=== PATIENT | female | born 1980 | race Hispanic/Latino ===

== ENCOUNTER 2018-02-07 18:49 | Emergency (ER) | payer OTHER ==
[~2018-02-07] VITALS: Ht 157.5 cm; Wt 72.6 kg
[2018-02-07] MEDS ORDERED: SODIUM CHLORIDE 0.9% 1000ML 1,000 ML IV STA (19:12)
[2018-02-07 19:33] LABS: BASOPHILS % 0.3 % (0.0-1.0); EOSINOPHILS # (AUTO) 0.2 (0.0-0.4); EOSINOPHILS % 1.6 % (0.0-6.0); HEMATOCRIT 39.6 % (34.2-44.1); HEMOGLOBIN 13.6 g/dL (12.0-16.0); LYMPHOCYTES # (AUTO) 3.7 (1.0-3.2); LYMPHOCYTES % 29.9 % (18.0-39.1); MEAN CORPUSCULAR HEMOGLOBIN 31.7 pg (28-32); MEAN CORPUSCULAR HGB CONC 34.3 g/dL (31-35); MEAN CORPUSCULAR VOLUME 92.3 fL (81-99); MONOCYTES # (AUTO) 0.9 (0.2-0.8); MONOCYTES % 6.9 % (4.4-11.3); NEUTROPHILS # (AUTO) 7.5 (2.1-6.9); NEUTROPHILS % 60.6 % (38.7-80.0); PLATELET COUNT 239 x10e3/uL (140-360); RED BLOOD COUNT 4.29 x10e6/uL (3.6-5.1); RED CELL DISTRIBUTION WIDTH 12.7 % (11.7-14.4)
[2018-02-07 19:34] LABS: COLOR,URINE YELLOW (YELLOW); KETONES,URINE NEGATIVE (NEGATIVE); LEUKOCYTE ESTERASE ,URINE NEGATIVE (NEGATIVE); NITRITE,URINE NEGATIVE (NEGATIVE); PROTEIN,URINE DIPSTICK NEGATIVE (NEGATIVE); URINE UROBILINOGEN 0.2 mg/dL (0.2 - 1)
[2018-02-07 19:35] LABS: BILIRUBIN,URINE NEGATIVE (NEGATIVE)
[2018-02-07 19:40] LABS: BACTERIA,URINE RARE /HPF; CLARITY,URINE CLEAR (CLEAR); EPITHELIAL CELLS,URINE MODERATE /LPF; RBC,URINE 21-50 /HPF (0-5); WBC,URINE (MAN) 0-5 /HPF (0-5)
[2018-02-07 19:47] LABS: ALANINE AMINOTRANSFERASE 21 IU/L (0-55); ALBUMIN 3.7 g/dL (3.5-5.0); ALKALINE PHOSPHATASE 65 IU/L (40-150); AMYLASE 69 U/L (25-125); ANION GAP 15.2 mmol/L (8-16); BLOOD UREA NITROGEN 10 mg/dL (7-26); BUN/CREATININE RATIO 16 (6-25); CALCIUM 9.3 mg/dL (8.4-10.2); CARBON DIOXIDE 19 mmol/L (22-29); CHLORIDE 105 mmol/L (98-107); CREATININE, SERUM 0.64 mg/dL (0.57-1.11); EST GLOMERULAR FILTRATION RATE > 60 ML/MIN (60-); GLUCOSE 99 mg/dL (74-118); LIPASE 60 U/L (8-78); POTASSIUM 4.2 mmol/L (3.5-5.1); SODIUM 135 mmol/L (136-145)
[2018-02-07 20:10] LABS: HCG,QUANTITATIVE 31187.37 mIU/mL (0-10)
--- NOTE | 2018-02-07 21:46 | Diagnostic Imaging Report ---
EXAM: Obstetric Pelvic Ultrasound INDICATION: Vaginal bleeding, 8 weeks . COMPARISON: None TECHNIQUE: Transabdominal and transvaginal evaluation of the pelvis was performed in the transverse and longitudinal planes. CLINICAL HISTORY: 37 year old A0; last menstrual period: 09/10/2018 Gestational age by LMP 9 weeks and 2 days FINDINGS: Uterus: Orientation: Normal Size: 8.2 x 5.4 x 5.5 cm, enlarged Mass: None Cervix: Normal Gestational Sac: Location: Intrauterine Average sac diameter: 1.41 cm Estimated sonographic GA: 9 weeks and 2 days Appearance: Normal in contour Subchorionic hemorrhage: None Yolk sac: Normal Embryo/Fetus: Not visualized Cardiac activity: Not visualized Right ovary Not visualized Left ovary Size: 1.9 x 2.8 x 2.7 cm Mass/Cyst: None Cul-de-sac: No free fluid IMPRESSION: 1. Intrauterine gestational sac without evidence of pole suspicious for blighted ovum (anembryonic gestational sac). 2. Follow-up with serial beta-hCG is recommended Signed by: Dr. Naldo George M.D. on 02/07/2018 9:41 PM
[2018-02-07 22:43] VITALS: BP 100/76
== END 2018-02-07 22:47 | disposition home or self-care (01) ==
LOC: ER 18:49
DX: O20.9 Hemorrhage in early pregnancy, unspecified (principal); O02.0 Blighted ovum and nonhydatidiform mole
CPT/HCPCS: 36415; 76817; 80053; 81001; 82150; 83690; 84702; 85025; 99283; J7030